=== PATIENT | male | born 1965 | race Caucasian/White ===

== ENCOUNTER 2021-06-12 15:31 | Emergency (ER) | payer BC, OTHER ==
[2021-06-12 16:12] VITALS: BP 121/86; PULSE 80
--- NOTE | 2021-06-12 17:13 | EDM.PDOC ---
ED HPI GENERAL MEDICAL PROBLEM - General Chief Complaint: ENT Problem Stated Complaint: POSSIBEL DETACHED RETINA Time Seen by Provider: 06/12/21 16:20 Source of Information: Reports: Patient, RN, RN Notes Reviewed History Limitations: Reports: No Limitations - History of Present Illness INITIAL COMMENTS - FREE TEXT/NARRATIVE: Jessee is a 55 y/o male who presents to the ED via personal vehicle with complaints of floaters and black dots in the left eye visual field. Additionally, he attest to left eye blurriness that appears to be worsening. The patient states he was somewhat dizzy this morning upon awakening, but notes that immediately dissipated and has not returned. The patient reports a familial history of retinitis pigmentosa and is concerned is is having retinal detachment. He denies complete loss of visual field, bright spots, or flashers to his visual field. He denies recent illness, fever, headache, sinus congestion, ear pain/pressure, cough, or sore throat. He denies pain or irritation to his eye. He denies head trauma. His corrected visual acuity is L 20/25 R 20/30 - Related Data Allergies Allergy/AdvReac Type Severity Reaction Status Date / Time No Known Allergies Allergy Verified 12/04/15 12:34 Home Meds: Home Meds lisinopriL [Prinivil] 10 mg PO BEDTIME 09/04/14 [History] Ascorbic Acid [Vitamin C] 1,000 mg PO DAILY 06/12/21 [History] Aspirin [Aspirin EC] 81 mg PO DAILY 06/12/21 [History] Cholecalciferol (Vitamin D3) [Vitamin D] 5,000 unit PO DAILY 06/12/21 [History] Lutein/Minerals/Vit A,C & E [Ocuvite] 1 tab PO DAILY 06/12/21 [History] Magnesium Oxide [Magnesium] 500 mg PO DAILY 06/12/21 [History] Omeprazole 20 mg PO DAILY 06/12/21 [History] Past Medical History HEENT History: Reports: Impaired Vision Other HEENT History: wears glasses Cardiovascular History: Reports: Hypertension Respiratory History: Reports: None Gastrointestinal History: Reports: GERD Genitourinary History: Reports: None Neurological History: Reports: None Psychiatric History: Reports: None Endocrine/Metabolic History: Reports: None Hematologic History: Reports: None Immunologic History: Reports: None Oncologic (Cancer) History: Reports: None Dermatologic History: Reports: None - Infectious Disease History Infectious Disease History: Reports: Chicken Pox - Past Surgical History Head Surgeries/Procedures: Reports: None Cardiovascular Surgical History: Reports: None GI Surgical History: Reports: None Musculoskeletal Surgical History: Reports: Shoulder Surgery Other Musculoskeletal Surgeries/Procedures:: bone spur removed form right shoulder Social & Family History - Family History Family Medical History: Unobtainable - Tobacco Use Tobacco Use Status *Q: Never Tobacco User Second Hand Smoke Exposure: No - Caffeine Use Caffeine Use: Reports: None - Alcohol Use Days Per Week of Alcohol Use: 2 Number of Drinks Per Day: 30 Total Drinks Per Week: 60 - Recreational Drug Use Recreational Drug Use: No ED ROS ENT - Review of Systems Review Of Systems: Comprehensive ROS is negative, except as noted in HPI. ED EXAM, ENT - Physical Exam Exam: See Below Exam Limited By: No Limitations General Appearance: Alert, Anxious Eye Exam: Left Eye: Vision Changes (Floaters and black spots diffuse to visual field), Bilateral Eye: EOMI, Normal Inspection, PERRL (3mm) Ears: Normal External Exam, Normal Canal, Hearing Grossly Normal, Normal TMs Nose: Normal Inspection, Normal Mucousa, No Blood Mouth/Throat: Normal Inspection, Normal Gums, Normal Lips, Normal Oropharynx, Normal Teeth Head: Atraumatic, Normocephalic Neck: Normal Inspection, Supple, Non-Tender, Full Range of Motion. No: Lymphadenopathy (L), Lymphadenopathy (R) Respiratory/Chest: No Respiratory Distress, Lungs Clear, Normal Breath Sounds, No Accessory Muscle Use, Chest Non-Tender Cardiovascular: Normal Peripheral Pulses, Regular Rate, Rhythm, No Gallop, No Murmur, No Rub GI/Abdominal: Normal Bowel Sounds, Soft Extremities: Normal Inspection, Normal Range of Motion Neurological: Alert, Oriented, CN II-XII Intact, Normal Cognition, Normal Gait, No Motor/Sensory Deficits Psychiatric: Anxious Skin: Warm, Dry, Intact, Normal Color, No Rash. No: Cyanosis, Jaundice, Mottled, Pallor Lymphatic: No Adenopathy Course - Vital Signs Last Recorded V/S: Last Vital Signs Temp 97.1 F 06/12/21 15:40 Pulse 80 06/12/21 15:40 Resp 18 06/12/21 15:40 BP 121/86 06/12/21 15:40 Pulse Ox 97 06/12/21 15:40 - Re-Assessments/Exams Free Text/Narrative Re-Assessment/Exam: 06/12/21 Eye patch applied for comfort. Case discussed with Dr. Edouard, umbrella finisher at [facility], who states the patient's symptoms sound like a vitreal tear. He suggested the patient follow up with his primary infrastructure manager in 2-3 days, or he will schedule him early this week if the patient is unable to be seen locally in a reasonable time. Findings of examination and discussion with Dr. Edouard reviewed with patient. Red flag signs and symptoms which would warrant reevaluation discussed. Patient verbalized understanding and agreement with the plan of care. Departure - Departure Time of Disposition: 17:13 Disposition: Home, Self-Care 01 Condition: Fair Clinical Impression: Floaters in visual field Qualifiers: Laterality: left Qualified Code(s): H43.392 - Other vitreous opacities, left eye - Discharge Information *PRESCRIPTION DRUG MONITORING PROGRAM REVIEWED*: Not Applicable *COPY OF PRESCRIPTION DRUG MONITORING REPORT IN PATIENT LUIS ANTONIO: Not Applicable Forms: ED Department Discharge Additional Instructions: 1.) Follow up with you infrastructure manager in 2-3 days regarding today's visit. If you are unable to get into an infrastructure manager Dr. Edouard at [facility] stated he would be more than happy to see you. 2.) Continue to rest the eye. 3.) Return to the emergency department with any worsening symptoms or pain in the eye.
== END 2021-06-12 17:44 | disposition home or self-care (01) ==
LOC: DL.ED 15:31
DX: H43.392 Other vitreous opacities, left eye (principal); K21.9 Gastro-esophageal reflux disease without esophagitis; I10 Essential (primary) hypertension; Z79.82 Long term (current) use of aspirin; Z79.899 Other long term (current) drug therapy
CPT/HCPCS: 99283